=== PATIENT | female | born 1990 | race Caucasian/White ===

== ENCOUNTER 2020-03-06 16:20 | Observation (INO) ==
--- NOTE | 2020-03-06 17:15 | Emergency Department Note ---
History of Present Illness General Chief complaint: Facial Injury/Pain Stated complaint: FELL 2 DAYS, HEAD INJURY, JAW PAIN, POZO, 9 WKS Time Seen by Provider: 03/06/20 16:56 Source: patient History of Present Illness Provider complaint: Facial pain Onset (ago): day(s) Location: head and face Severity: moderate Pain Consistency: + constant Maximum Pain Intensity: 6 Quality: + aching and + sharp Exacerbated By: + movement (Of jaw) Associated symptoms: + headaches and + nausea/vomiting (Nausea without vomiting); no chest pain, no cough, no fever/chills and no shortness of breath This is a 29-year-old female presents with headache and facial pain after a head injury 2 days ago. The patient states that approximately 7 PM 2 days ago the patient missed a step and fell forward hitting her left face onto a wooden post. Witnesses stated that she was unconscious for a time. They took her to the hospital and she says she remembers arriving to the hospital. They did a ultrasound of the fetus and stated that she had a healthy 9-week but the patient and health care provider decided not to do any imaging of her head, face or hand at the time. The patient is having persistent pain to her face and head and so comes here for evaluation. She states she cannot open her jaw and has not been able to since the injury. She has been drinking liquids but not eating any solid foods. She denies any bleeding from her gums. She has sharp pain shooting into her pentecostalism. She does have some nausea but no vomiting. She is 9 weeks so she is not sure if the nausea is due to that. She denies any abdominal pain, uterine cramping or vaginal bleeding. She has had no fever, chest pain, shortness of breath, cough or cold symptoms or known exposure to COVID-19. She denies any diarrhea or urinary symptoms. She also complains of pain to the right fifth digit. She is not sure how she injured it during the fall. 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 Surgical History History of D&C D&E x2 Family History Father Prostate cancer Denies family history of No family history of adverse response to anesthesia Social History Smoking Status: Never smoker Second Hand Exposure: No; Hx Alcohol Use: Yes Alcohol type: beer, wine and hard liquor Hx Substance Use: No Preferred Language: Japanese Communication Ability: Effective Layer Out Required: No Beliefs That Will Affect Care: None marital status: marital status details: Juan Pablo (40) [phone] Current Living Situation: Family Current Living Situation Comment: brother and father current occupational status: employed current occupation: [employer]. Feels Safe at Home: Yes Review of Systems See HPI for pertinent positives & negatives. and A total of 10 systems reviewed and were otherwise negative Physical Exam Vital Signs Vital Signs - 24 hr 03/06/20 16:36 03/06/20 18:48 03/06/20 19:27 Temperature 36.8 C Temperature Source Oral Pulse Rate 89 Pulse Rate [Right Finger] 61 71 Respiratory Rate 19 17 20 Blood Pressure 128/84 Blood Pressure [Right Arm] 130/81 135/87 Blood Pressure Mean 98 Blood Pressure Mean [Right Arm] 97 103 Pulse Oximetry 99 100 99 Oxygen Delivery Method Room Air Sepsis Recent Fever Within 48 Hours No Sepsis New/Unexplained Change in Mental Status N/A Sepsis Action Taken by Nursing No Action Required 03/06/20 21:08 Temperature Temperature Source Pulse Rate Pulse Rate [Right Finger] 74 Respiratory Rate 20 Blood Pressure Blood Pressure [Right Arm] 140/102 H Blood Pressure Mean Blood Pressure Mean [Right Arm] 114 Pulse Oximetry 98 Oxygen Delivery Method Sepsis Recent Fever Within 48 Hours Sepsis New/Unexplained Change in Mental Status Sepsis Action Taken by Nursing Constitutional: Vital signs reviewed. Eyes: Pupils are equal round reactive to light. Conjunctiva are noninjected. Ecchymosis under the left eye. No EOM entrapment. ENT: Diffuse tenderness along the TMJ and temporal. No roberson sign. No hemotympanum. Patient is not able to open her jaw. Neck supple without meningeal signs. No midline tenderness to the cervical spine. Respiratory: Clear to auscultation bilaterally. Breath sounds are equal bilaterally. Cardiovascular: Regular rate and rhythm. No rubs or gallops. GI: Soft, nondistended and nontender. Bowel sounds are present. Musculoskeletal: Tenderness and bruising throughout the right fifth digit without deformity. No tenderness proximally. Integumentary: No cyanosis. or jaundice. Neurologic: The patient is awake and alert. Cranial nerves are grossly intact. The patient is unable to open her jaw. Motor is 5 out of 5 all extremities. Sensation is intact to light touch all extremities. Normal speech. No pronator drift. Psychiatric: Normal affect. Not anxious appearing. Course Administered Medications Discontinued Medications Sodium Chloride (Nss 1000ml) 1,000 mls @ 999 mls/hr IV .Q1H1M ONE Stop: 03/06/20 20:55 Last Infusion: 03/06/20 21:09 Dose: 0 mls/hr Documented by: [id number] Admin: 03/06/20 20:13 Dose: 999 mls/hr Documented by: [id number] Medical Decision Making Differential Diagnosis ICH, concussion, contusion, mandibular fracture, finger fracture Medical Records Attestation: I reviewed the patient's medical records. I did perform a limited focused review of portions of the patient's old chart on the electronic medical record. The patient has had no recent pertinent visits to this hospital. Home Medications Current Medication List: was personally reviewed by me Laboratory Data Result diagrams: 03/06/20 20:03 03/06/20 20:03 Lab Results 03/06/20 03/06/20 03/06/20 Range/Units 20:03 20:03 20:03 WBC 5.35 (4.8-10.8) K/uL RBC 4.18 L (4.2-5.4) M/uL Hgb 14.1 (12.0-16.0) g/dL Hct 40.0 (37-47) % MCV 95.7 (80-100) fL MCH 33.7 (25-34) pg MCHC 35.3 (32-36) g/dL RDW Std Deviation 42.6 (36.4-46.3) fL RDW Coeff of Kiki 12.2 (11.5-14.5) % Plt Count 236 (130-400) K/uL MPV 9.9 (7.4-10.4) fL Immature Gran % (Auto) 0.2 % Neut % (Auto) 67.7 % Lymph % (Auto) 20.7 % Dickson % (Auto) 10.3 % Eos % (Auto) 0.7 % Baso % (Auto) 0.4 % Neut # (Auto) 3.62 (1.4-6.5) K/uL Lymph # (Auto) 1.11 L (1.2-3.4) K/uL Dickson # (Auto) 0.55 (0.11-0.59) K/uL Eos # (Auto) 0.04 (0-0.5) K/uL Baso # (Auto) 0.02 (0-0.2) K/uL Immature Gran # (Auto) 0.01 (0.00-0.02) K/uL PT 10.9 (9.0-12.0) Seconds INR 1.0 (0.9-1.1) APTT 25.9 (21.0-31.0) Seconds PTT Ratio 0.9 Sodium 136 (136-145) mmol/L Potassium 3.3 L (3.5-5.1) mmol/L Chloride 102 (98-107) mmol/L Carbon Dioxide 24 (21-32) mmol/L Anion Gap 10.0 (3-11) BUN 8 (7-18) mg/dl Creatinine 0.72 (0.6-1.2) mg/dl Est Cr Clr Drug Dosing 107.0 ml/min Est GFR ( Amer) 130.2 Est GFR (Non-Af Amer) 112.4 BUN/Creatinine Ratio 10.7 (10-20) Glucose 92 (70-99) mg/dl Calcium 9.7 (8.5-10.1) mg/dl Total Bilirubin 0.7 (0.2-1) mg/dl AST 36 (15-37) U/L ALT 93 H (12-78) U/L Alkaline Phosphatase 58 (45-117) U/L Total Protein 8.1 (6.4-8.2) gm/dl Albumin 4.5 (3.4-5.0) gm/dl Globulin 3.6 (2.5-4.0) gm/dl Albumin/Globulin Ratio 1.3 (0.9-2) Imaging Data Radiologist's Impression: XR finger(s) RT min 2V HISTORY: 29 years-old Female 5th digit trauma eval for fracture() acute right fifth finger pain status post trauma COMPARISON: None TECHNIQUE: 3 views of the right fifth finger FINDINGS: Mild soft tissue swelling. There is an acute nondisplaced volar plate avulsion fracture involving the base of the fifth middle phalanx. No dislocation. No significant osteoarthritis. IMPRESSION: Acute nondisplaced volar plate avulsion fracture involves the base of the fifth middle phalanx. ACT 112: Negative or not required by law. The above report was generated using voice recognition software. It may contain grammatical, syntax or spelling errors. Electronically signed by: Luis William M.D. 03/06/2020 5:43 PM Dictated: 03/06/201741 Transcribed: 03/06/201741 CT head/brain wo con CLINICAL HISTORY: 29 years-old Female with trauma eval for bleed (). Acute post traumatic head and neck injury TECHNIQUE: Multiple axial CT images of the head were obtained without contrast. A dose lowering technique was utilized adhering to the principles of ALARA. COMPARISON: CT maxillofacial same day. FINDINGS: No acute intracranial hemorrhage, midline shift, intracranial mass, hydrocep halus, territorial ischemia or abnormal extra-axial collection. No acute calvarial fracture. Acute fractures of the left-sided grammatical arch are partially imaged. Mastoid air cells and paranasal sinuses are generally clear. Mild subcutaneous edema of the lateral left cheek. IMPRESSION: 1. No acute intracranial abnormality or calvarial fracture. 2. Please refer to CT maxillofacial study of same day for discussion of the acute facial bone fractures. ACT 112: Negative or not required by law. The above report was generated using voice recognition software. It may contain grammatical, syntax or spelling errors. Electronically signed by: Luis William M.D. 03/06/2020 6:[address] facial bones wo con CLINICAL HISTORY: 29 years-old Female presenting with trauma eval for fracture(). Acute facial trauma COMPARISON STUDY: Head CT of same day TECHNIQUE: High-resolution CT scan of the facial bones is performed. Images are reviewed in the axial, sagittal, and coronal planes. IV contrast was not administered for this examination. A dose lowering technique was utilized a dhering to the principles of ALARA. CT DOSE: 736.23 mGy.cm FINDINGS: Mild to moderate subjacent of the lateral left cheek superficial to an acute fracture of the left-sided zygomatic arch which demonstrates apex medial angulation of approximately 44 degrees. The arch is fractured in 3 places. Mas toid air cells and middle ear cavities are clear. Minimal mucosal thickening of the ethmoid air cells and left maxillary sinus. Mild upper bowing and spurring of the nasal septum. Maxillary garay, as a grammatical arches, nasal bone, right zygomatic arch, mandible and orbital garay appear intact. IMPRESSION: Acute comminuted and angulated fracture of the left zygomatic arch with mild to moderate soft tissue swelling. ACT 112: Negative or not required by law. The above report was generated using voice recognition software. It may contain grammatical, syntax or spelling errors. Electronically signed by: Luis William M.D. 03/06/2020 7:08 PM Dictated: 03/06/201904 Transcribed: 03/06/201904 Blood Pressure Blood Pressure Findings: Elevated blood pressure Blood Pressure Disposition: Referred to patients primary care provider Head Trauma GCS Score: 15 MDM Narrative I did evaluate the patient as noted above. She is presenting 2 days after a head injury. She is unable to open her jaw. She has significant headache and facial pain. After discussion of risks and benefits of CT scanning and x-rays she was agreeable to obtaining imaging. I did order and personally reviewed the images of the patient's right fifth digit x-rays as described above. She was placed in a bare metal splint. I did order a CT of the head and facial bones. I did review the images myself as well as the radiology report as described above. She has significant fractures to her face as noted above. I did discuss the case with Dr. Ramirez of oral surgery. He recommended patient be admitted to the hospital and he will perform surgery tomorrow. He did request the patient have clearance from [employer]. I did speak to Dr. Almanzar of [employer] who stated there was no contraindication to her having surgery. I did talk to the patient. I did discuss the test results and recommended hospitalization. She was agreeable with the plan. IV access was established. I did treat her with a liter of normal saline. I did order and review the patient's blood work as noted in the electronic medical record. Her labs are unremarkable other than a mild hypokalemia. I did discuss case with the hospitalist and keycase assembler. Impression & Plan Fracture, facial bones, Fall, Head injury, closed, with LOC of unknown duration, First trimester Discharge Plan Visit Data Chief Complaint: Facial Injury/Pain Stated Complaint: FELL 2 DAYS, HEAD INJURY, JAW PAIN, POZO, 9 WKS ED Provider: Roney Garcia Discharge Problem: Fracture, facial bones, Fall, Head injury, closed, with LOC of unknown duration, First trimester Patient Disposition: Being Evaluated by Hospitalist Forms Stand Alone Forms: [facility] 360pi Prescriptions Prescriptions: No Action prenat.vits,wyatt,kmg-mfev-rahxr Tablet 1 tab PO DAILY RF: 0 Referrals Referrals: PCP,NO [Primary Care Provider] -
--- NOTE | 2020-03-06 17:44 | XRay Report ---
XR finger(s) RT min 2V HISTORY: 29 years-old Female 5th digit trauma eval for fracture() acute right fifth finger p ain status post trauma COMPARISON: None TECHNIQUE: 3 views of the right fifth finger FINDINGS: Mild soft tissue swelling. There is an acute nondisplaced volar plate avulsion fracture involving the base of the fifth middle phalanx. No dislocation. No significant osteoarthritis. IMPRESSION: Acute nondisplaced volar plate avulsion fracture involves the base of the fifth middle ph alanx. ACT 112: Negative or not required by law. The above report was generated using voice recognition software. It may contain grammatical, syntax o r spelling errors. Electronically signed by: Luis William M.D. 03/06/2020 5:43 PM
--- NOTE | 2020-03-06 18:50 | CT Scan Report ---
CT head/brain wo con CLINICAL HISTORY: 29 years-old Female with trauma eval for bleed (). Acute post traumatic he ad and neck injury TECHNIQUE: Multiple axial CT images of the head were obtained without contrast. A dose lowering tech nique was utilized adhering to the principles of ALARA. COMPARISON: CT maxillofacial same day. FINDINGS: No acute intracranial hemorrhage, midline shift, intracranial mass, hydrocephalus, territorial ischem ia or abnormal extra-axial collection. No acute calvarial fracture. Acute fractures of the left-sided grammatical arch are partially imaged. Mastoid air cells and paranasal sinuses are generally clear. Mild subcutaneous edema of the lateral left cheek. IMPRESSION: 1. No acute intracranial abnormality or calvarial fracture. 2. Please refer to CT maxillofacial study of same day for discussion of the acute facial bone fractur es. ACT 112: Negative or not required by law. The above report was generated using voice recognition software. It may contain grammatical, syntax o r spelling errors. Electronically signed by: Luis William M.D. 03/06/2020 6:49 PM
--- NOTE | 2020-03-06 19:10 | CT Scan Report ---
CT facial bones wo con CLINICAL HISTORY: 29 years-old Female presenting with trauma eval for fracture(). Acute facia l trauma COMPARISON STUDY: Head CT of same day TECHNIQUE: High-resolution CT scan of the facial bones is performed. Images are reviewed in the axia l, sagittal, and coronal planes. IV contrast was not administered for this examination. A dose lower ing technique was utilized adhering to the principles of ALARA. CT DOSE: 736.23 mGy.cm FINDINGS: Mild to moderate subjacent of the lateral left cheek superficial to an acute fracture of the left-tanvi ed zygomatic arch which demonstrates apex medial angulation of approximately 44 degrees. The arch is fractured in 3 places. Mastoid air cells and middle ear cavities are clear. Minimal mucosal thickenin g of the ethmoid air cells and left maxillary sinus. Mild upper bowing and spurring of the nasal sept um. Maxillary garay, as a grammatical arches, nasal bone, right zygomatic arch, mandible and orbital garay appear intact. IMPRESSION: Acute comminuted and angulated fracture of the left zygomatic arch with mild to moderate soft tissue swelling. ACT 112: Negative or not required by law. The above report was generated using voice recognition software. It may contain grammatical, syntax o r spelling errors. Electronically signed by: Luis William M.D. 03/06/2020 7:08 PM
[2020-03-06] MEDS ORDERED: SODIUM CHLORIDE 0.9% 1000ML 1,000 ML IV ONE (19:55)
[2020-03-06 20:15] LABS: Basophils # (auto) 0.02 K/uL (0-0.2); Basophils % (auto) 0.4 %; Eosinophils # (auto) 0.04 K/uL (0-0.5); Eosinophils % (auto) 0.7 %; Hemoglobin 14.1 g/dL (12.0-16.0); Immature Granulocytes # (auto) 0.01 K/uL (0.00-0.02); Immature Granulocytes % (auto) 0.2 %; Lymphocytes # (auto) 1.11 K/uL (1.2-3.4); Lymphocytes % (auto) 20.7 %; Mean Corpuscular Hemoglobin 33.7 pg (25-34); Mean Corpuscular Hgb Conc 35.3 g/dL (32-36); Mean Corpuscular Volume 95.7 fL (80-100); Mean Platelet Volume 9.9 fL (7.4-10.4); Monocytes # (auto) 0.55 K/uL (0.11-0.59); Monocytes % (auto) 10.3 %; Neutrophils # (auto) 3.62 K/uL (1.4-6.5); Neutrophils % (auto) 67.7 %; Platelet Count 236 K/uL (130-400); RDW Coefficient of Variation 12.2 % (11.5-14.5); RDW Standard Deviation 42.6 fL (36.4-46.3); Red Blood Count 4.18 M/uL (4.2-5.4); White Blood Count 5.35 K/uL (4.8-10.8)
[2020-03-06 20:29] LABS: Partial Thromboplastin Ratio 0.9; Partial Thromboplastin Time 25.9 Seconds (21.0-31.0); Prothrombin Time 10.9 Seconds (9.0-12.0)
[2020-03-06 20:35] LABS: Albumin Level 4.5 gm/dl (3.4-5.0); BUN Creatinine Ratio 10.7 (10-20); Calcium 9.7 mg/dl (8.5-10.1); Est GFR (African American) 130.2; Est GFR (Non-African American) 112.4; Potassium 3.3 mmol/L (3.5-5.1)
[2020-03-06 20:38] LABS: Albumin Globulin Ratio 1.3 (0.9-2); Bilirubin,Total 0.7 mg/dl (0.2-1); Globulin 3.6 gm/dl (2.5-4.0); Total Protein 8.1 gm/dl (6.4-8.2)
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
[2020-03-06] MEDS ORDERED: ACETAMINOPHEN 1000 MG/100 ML IV IV PRN (22:53)
[2020-03-06] MEDS: SODIUM CHLORIDE 0.9% 1000ML 1,000 ML IV SCH (23:16)
[2020-03-06] MEDS: MoRPHine SULFATE 2 MG/ML CARP IV PRN (23:41)
[2020-03-07] MEDS: SODIUM CHLORIDE 0.9% 1000ML 1,000 ML IV SCH (07:22)
[2020-03-07] MEDS: MoRPHine SULFATE 2 MG/ML CARP IV PRN (07:26)
[2020-03-07] MEDS: PRENATAL VITAMIN 1 TAB PO SCH (08:02)
--- NOTE | 2020-03-07 08:25 | Hospitalist Progress Note ---
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 Zygomatic arch fracture on left side -Dr. Ramirez Maxillofacial surgery Cx'd -surgery scheduled for 11:00 -Routine postop care per surgery -Patient has been n.p.o. overnight with normal saline at 125 mls/hour -She reports feeling a bit dry and not voiding, changed to LR at 175 -Tylenol for mild pain morphine for severe -Reports pain well controlled Fifth Digit Finger fracture Acute nondisplaced Fracture -Patient could not tolerate the splint recommend robyn taping 9 weeks by last menstrual period, has not had initial OB appointment. History of molar in the past, obtained obtain hCG to confirm , quantitative hCG 39,000. -Scheduled with Dr. Vinson -try to avoid unnecessary radiation F/E/N: LR at 125 Mls/hour DVT PPx: none, ambulating Dispo: NPO pending surgery tomorrow Full Code (2) Fall: (3) Head injury, closed, with LOC of unknown duration: (4) First trimester : (5) Supervision of normal intrauterine in primigravida: Admission and Anticipated Discharge Date Admission Date: March 06, 2020 Supervising Physician Co-Signing Physician Notes Patient seen and examined with resident physician, Dr. Ravi. Agree with history, exam findings, assessment and plan of care as outlined by Dr. Ravi. In brief, Zoraida is a 29 year old at 9 weeks gestation admitted following a fall a few days ago where she hit her face on a pole. She was having difficulty opening her mouth and continued to have significant pain over the left zygomatic arch with a depression and came to the ED for evaluation. She was found to have an acute, comminuted and angulated fracture of the left zygomatic arch. She continues to have pain in the area of the fracture. She also has discomfort in the right small finger. A metal splint was placed on the finger, but it was loose and kept falling off. She has not yet established care with OB, but has an appointment coming up with Dr. Vinson. Noted that she had a small amount of pink tinged vaginal discharge today. No abdominal pain or cramping. On exam today, she is well appearing. There is soft tissue edema and ecchymosis over the left zygomatic arch. Heart with regular rate and rhythm. S1/S2 without murmur, rub or gallop. Lungs are clear to auscultation throughout all lung geller. Small finger, right hand with soft tissue swelling and tenderness. Able to flex at the DIP, PIP and MCP. 1. left zygomatic arch fracture. Repair with OMFS later today. 2. right small finger fracture. Robyn tape to ring finger. Anticipate this will heal well. 3. . did place a consult to OB given her recent pink tinged vaginal discharge. Appreciate recommendations. Dispo: pending clinical improvement. Subjective Patient lying in bed with her in no acute distress. Patient briefly relate her story to me, which correlated with the events listed in her H&P. Per reports the patient had eczema heart and up to shake the entire structure. I question the patient about her loss of consciousness during the incident, she did not describe anything that would suggest a post ictal state, there are no history of seizures. She did have a confusion and difficulty remembering that correlated well with concussion symptoms. The patient stated she was voiding, using the bathroom appropriately, decreased p.o. intake due to her zygomatic fracture, and slept not well last night. Patient is scheduled for surgery at 11 AM this afternoon, all questions were answered no acute concerns. We reviewed the patient's OB history with her, she has not had her initial OB appointment yet. She reported having a history of 2 prior pregnancies as documented in her OB note. She is scheduled to have her first OB appointment with Dr. Vinson in the coming weeks. Review of Systems Review of Systems: All systems reviewed & are unremarkable except as noted in HPI & below Physical Exam Physical Exam: General: In no acute distress HEENT: Normocephalic atraumatic Neck: Trachea midline normal to visual inspection Cardiac: See attending attestation Respiratory: No respiratory distress, symmetrical chest expansion, able to talk in full sentences, see attending attestation MSK: Moves all extremities, swelling in her right fifth digit, Skin: Visible bruise under her left eye otherwise cool dry and intact Neuro: Alert and oriented x4, CN II through XII grossly intact, sensory function intact, motor function intact Psych: Calm and cooperative Results & Data Results & Data ([facility]) Vital Signs (Past 12 Hours) Vital Signs Temp Pulse Resp BP BP Pulse Ox 03/07/20 06:51 36.6 C 79 20 119/63 98 03/06/20 22:58 36.4 C L 76 16 147/91 H 100 03/06/20 22:21 71 18 118/78 98 03/06/20 21:08 74 20 140/102 H 98 Laboratory Results 03/07/20 03/07/20 03/07/20 Range/Units 10:30 10:30 00:20 WBC (4.8-10.8) K/uL RBC (4.2-5.4) M/uL Hgb (12.0-16.0) g/dL Hct (37-47) % MCV (80-100) fL MCH (25-34) pg MCHC (32-36) g/dL RDW Std Deviation (36.4-46.3) fL RDW Coeff of Kiki (11.5-14.5) % Plt Count (130-400) K/uL MPV (7.4-10.4) fL Immature Gran % (Auto) % Neut % (Auto) % Lymph % (Auto) % Barron % (Auto) % Eos % (Auto) % Baso % (Auto) % Neut # (Auto) (1.4-6.5) K/uL Lymph # (Auto) (1.2-3.4) K/uL Barron # (Auto) (0.11-0.59) K/uL Eos # (Auto) (0-0.5) K/uL Baso # (Auto) (0-0.2) K/uL Immature Gran # (Auto) (0.00-0.02) K/uL PT (9.0-12.0) Seconds INR (0.9-1.1) APTT (21.0-31.0) Seconds PTT Ratio Sodium (136-145) mmol/L Potassium (3.5-5.1) mmol/L Chloride (98-107) mmol/L Carbon Dioxide (21-32) mmol/L Anion Gap (3-11) BUN (7-18) mg/dl Creatinine (0.6-1.2) mg/dl Est Cr Clr Drug Dosing ml/min Est GFR ( Amer) Est GFR (Non-Af Amer) BUN/Creatinine Ratio (10-20) Glucose (70-99) mg/dl Calcium (8.5-10.1) mg/dl Total Bilirubin (0.2-1) mg/dl AST (15-37) U/L ALT (12-78) U/L Alkaline Phosphatase (45-117) U/L Total Protein (6.4-8.2) gm/dl Albumin (3.4-5.0) gm/dl Globulin (2.5-4.0) gm/dl Albumin/Globulin Ratio (0.9-2) HCG, Quant 69930 mIU/ml COVID-19 Eval Order Covid19 IDNow [facility] SARS-CoV-2, RNA, NAAT NEGATIVE (NEGATIVE) 03/06/20 03/06/20 03/06/20 Range/Units 20:03 20:03 20:03 WBC 5.35 (4.8-10.8) K/uL RBC 4.18 L (4.2-5.4) M/uL Hgb 14.1 (12.0-16.0) g/dL Hct 40.0 (37-47) % MCV 95.7 (80-100) fL MCH 33.7 (25-34) pg MCHC 35.3 (32-36) g/dL RDW Std Deviation 42.6 (36.4-46.3) fL RDW Coeff of Kiki 12.2 (11.5-14.5) % Plt Count 236 (130-400) K/uL MPV 9.9 (7.4-10.4) fL Immature Gran % (Auto) 0.2 % Neut % (Auto) 67.7 % Lymph % (Auto) 20.7 % Barron % (Auto) 10.3 % Eos % (Auto) 0.7 % Baso % (Auto) 0.4 % Neut # (Auto) 3.62 (1.4-6.5) K/uL Lymph # (Auto) 1.11 L (1.2-3.4) K/uL Barron # (Auto) 0.55 (0.11-0.59) K/uL Eos # (Auto) 0.04 (0-0.5) K/uL Baso # (Auto) 0.02 (0-0.2) K/uL Immature Gran # (Auto) 0.01 (0.00-0.02) K/uL PT 10.9 (9.0-12.0) Seconds INR 1.0 (0.9-1.1) APTT 25.9 (21.0-31.0) Seconds PTT Ratio 0.9 Sodium 136 (136-145) mmol/L Potassium 3.3 L (3.5-5.1) mmol/L Chloride 102 (98-107) mmol/L Carbon Dioxide 24 (21-32) mmol/L Anion Gap 10.0 (3-11) BUN 8 (7-18) mg/dl Creatinine 0.72 (0.6-1.2) mg/dl Est Cr Clr Drug Dosing 107.0 ml/min Est GFR ( Amer) 130.2 Est GFR (Non-Af Amer) 112.4 BUN/Creatinine Ratio 10.7 (10-20) Glucose 92 (70-99) mg/dl Calcium 9.7 (8.5-10.1) mg/dl Total Bilirubin 0.7 (0.2-1) mg/dl AST 36 (15-37) U/L ALT 93 H (12-78) U/L Alkaline Phosphatase 58 (45-117) U/L Total Protein 8.1 (6.4-8.2) gm/dl Albumin 4.5 (3.4-5.0) gm/dl Globulin 3.6 (2.5-4.0) gm/dl Albumin/Globulin Ratio 1.3 (0.9-2) HCG, Quant mIU/ml COVID-19 Eval Order SARS-CoV-2, RNA, NAAT (NEGATIVE) Medications Administered Current Inpatient Medications Acetaminophen (Acetaminophen 1000 Mg/100 Ml Iv) 1,000 mg IV TID PRN PRN Reason: Pain Stop: 03/09/20 22:52 Last Admin: 03/07/20 01:40 Dose: 1,000 mg Documented by: Lactated Ringer's (Lr) 1,000 mls @ 175 mls/hr IV .[id number] GAUDENCIO Stop: 04/06/20 10:29 Morphine Sulfate (Morphine Sulfate 2 Mg/Ml Carp) 1 mg IV QID PRN PRN Reason: Severe Pain Stop: 03/20/20 22:52 Last Admin: 03/07/20 07:26 Dose: 1 mg Documented by: Juanito Multivit/[place]/Iron/Folic Ac ( Vitamin 1 Tab) 1 tab PO DAILY GAUDENCIO Stop: 04/06/20 08:59 Last Admin: 03/07/20 08:02 Dose: Not Given Documented by: Resident Activity Tracking Resident Involvement: Resident Care Provided Care Provided: Adult Hospital Medicine (1) Fracture, facial bones Encounter type: initial encounter Facial bone/location: zygomatic arch Fracture type: closed Laterality: left Qualified Code(s): S02.40FA - Zygomatic fracture, left side, initial encounter for closed fracture (2) Fall Encounter type: initial encounter Qualified Code(s): W19.XXXA - Unspecified fall, initial encounter
--- NOTE | 2020-03-07 08:48 | Surgery Consultation ---
Date of Consultation March 07, 2020 Patient was referred for evaluation of left Zygomatic complex and arch fracture secondary to recent trauma. The injury happened on ---Mar 04 she tripped and hit a wooded post on the left side of her face CC-- My cheek bone is fractured, I have a depression of the left side of my face and I can not open my mouth. I am 9 weeks No swelling noted some ecchymosis left eye area, Depressed left zygomatic arch causing impingement on the mandibular coronoid process. Facial exam- Nasal septum midline, Eyes WNL PERRLA The left side of face depressed with restricted jaw movement. CT scan--after trauma ZMOC and arch bone fractures, grossly displaced Plan To OR today for open reduction of the depressed ZMOC and arch fracture Aim=to elevate the depressed ZMOC bones to return to the pre trauma position. Consent signed, risks reviewed. Given the depression and limited jaw opening reduction is medically indicated otherwise limited jaw function will be the result. 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 Surgical History History of D&C D&E x2 Family History Father Prostate cancer Denies family history of No family history of adverse response to anesthesia Social History Smoking Status: Never smoker Second Hand Exposure: No; Hx Alcohol Use: No Hx Substance Use: No Preferred Language: Tongan Communication Ability: Effective Limnologist Required: No Beliefs That Will Affect Care: None marital status: marital status details: Juan Pablo (40) [phone] Current Living Situation: Significant Other Current Living Situation Comment: brother and father current occupational status: employed current occupation: [employer]. Other Information That Helps Us Care for You: No Feels Safe at Home: Yes Safety Concerns: Feels Safe At This Time Results & Data ([facility]) Vital Signs (Past 12 Hours) Vital Signs Temp Pulse Resp BP BP Pulse Ox 03/07/20 06:51 36.6 C 79 20 119/63 98 03/06/20 22:58 36.4 C L 76 16 147/91 H 100 03/06/20 22:21 71 18 118/78 98 03/06/20 21:08 74 20 140/102 H 98 PG Care Time/CCT Total # of Minutes Spent Total Time Spent with Patient: Total time spent is greater than 50% in coordination of care (as documented) at patient's floor/unit and/or counseling patient: Coding Level of Care Code 80553 Inpt Consult Level 3
[2020-03-07] MEDS ORDERED: ONDANSETRON INJ 2 MG/ML 2 ML VIAL IV PRN (11:42)
[2020-03-07] MEDS ORDERED: ePHEDrine sulfate 50 MG/ML AMP IV PRN (11:42)
[2020-03-07] MEDS ORDERED: PHENYLEPHRINE 100MCG/ML 5ML SYR IV PRN (11:42)
[2020-03-07] MEDS ORDERED: LABETALOL HCL IV 5 MG/ML 20ML IV PRN (11:42)
[2020-03-07] MEDS ORDERED: ATROPINE SULFATE 0.1 MG/ML 10ML SYR IV PRN (11:42)
--- NOTE | 2020-03-07 12:37 | OB/GYN Consultation ---
Date of Consultation March 07, 2020 Assessment & Plan (1) First trimester : at 9 weeks by sure lmp with fall. Patient notes she does not think she had any abdominal trauma. The one episode of a very slight pink tinge d/c prior to going to the bathroom. Has been wearing a pad and has not noted any further d/c. Pad dry on exam. Pelvic exam deferred. Had us at [place] that showed a viable yesterday. Reassured patient. Since not persistent, likely not something to worry about. Spoke with anesthesia, they would like viability us prior to going to the OR, this was ordered stat as plan it to take to OR today. Will also need a blood type as none on the chart and give Rhogam if indicated. (2) Fracture, facial bones: Discussed the impact of surgery on her current . Since it is unlikely that she will be able to await to have her jaw fixed until she is in the second trimester (which is the best time to have any type of surgery in ), the benefit of the surgery for her outweighs the risks of surgery to the baby. If something happens, it will likely be an all or nothing event. Anesthesia will be aware and give her appropriate medications. We can check on the baby after surgery, but she will not require any prolonged monitoring given her very early gestational age. I will have to do that by us as the probability of hearing heart tones by doppler is essentially zero. Patient had her questions answered. History of Present Illness Reason for Consultation: 9 weeks , s/p fall, pink d/c Requesting Physician: Trav Attending Physician: Sammy Bright DO History of Present Illness Patient is a 29yowf with sure lmp of 01/03/20 making her 9 1/7 weeks. Patient underwent a fall yesterday, missing a step, hitting her face on a pole and falling to the ground. She had loc and notes she doesn't remember much. She originally presented to [facility] and had an ultrasound there showing a viable , normal fluid per her report (not available for my review). Today she is awaiting surgery for her multiple jaw fractures. She recently went to the [facility] and notes some clear/slightly blood tinged fluid prior to going to the [facility]. After going to the [facility], she put on a pad and has not noted any further d/c. She denies cramping. She is a . 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 Did follow she thinks for about 4 months. Hx of elective AB in 02/09. Patient has hx of RSO for ovarian fibroma in 08/[address] Mims. Patient has had an initial nurse evaluation for this and has a nob visit on 03/10 Patient does not know her blood type, but notes she never received any shots after her previous pregnancies. 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, treated in 2008 Surgical History History of D&C D&E x2 History of right salpingo-oophorectomy ovarian fibroma Family History Father Prostate cancer Denies family history of No family history of adverse response to anesthesia Social History Smoking Status: Never smoker Second Hand Exposure: No; Hx Alcohol Use: No Hx Substance Use: No Preferred Language: Lithuanian Communication Ability: Effective Public Health Nutritionist Required: No Beliefs That Will Affect Care: None marital status: marital status details: Juan Pablo (40) [phone] Current Living Situation: Significant Other Current Living Situation Comment: brother and father current occupational status: employed current occupation: [email or web address]. Other Information That Helps Us Care for You: No Feels Safe at Home: Yes Safety Concerns: Feels Safe At This Time Review of Systems Review of Systems: All systems reviewed & are unremarkable except as noted in HPI & below Physical Exam Constitutional: WD/WN, vitals as above Gastrointestinal (Abdomen): soft, nt, nd, no brusing or lesions noted. Skin: bruising noted under her left eye. No other significant bruising noted. Psychiatric: A+Ox3, euthymic affect Genitourinary: deferred at present Results & Data ([facility]) Vital Signs (Past 12 Hours) Vital Signs Temp Pulse Resp BP Pulse Ox 03/07/20 06:51 36.6 C 79 20 119/63 98 PG Care Time/CCT Total # of Minutes Spent Total Time Spent with Patient: Total time spent is greater than 50% in coordination of care (as documented) at patient's floor/unit and/or counseling patient: Coding Level of Care Code 04446 Inpt Consult Level 3 Diagnoses First trimester Z34.91 Fracture, facial bones S02.40FA Encounter type: initial encounter Facial bone/location: zygomatic arch Fracture type: closed Laterality: left (1) Fracture, facial bones Encounter type: initial encounter Facial bone/location: zygomatic arch Fracture type: closed Laterality: left Qualified Code(s): S02.40FA - Zygomatic fracture, left side, initial encounter for closed fracture
[2020-03-07] MEDS: LACTATED RINGER'S 1,000 ML IV SCH ×3 (13:07→22:13)
--- NOTE | 2020-03-07 13:33 | Anesthesiology Consultation ---
Date of Service March 07, 2020 Covid 19 negative today. Assessment & Plan (1) Encounter for pre-operative examination: Chart Review Chart Review: Acceptable Risk for Surgery and Patient NOT seen in Pre Admission Testing Consults Requested none History Surgery Operation Date: 03/07/20 11:00 Proposed Procedures p Open Reduction Zygoma - Alexander Ramirez, DMD Height/Weight Height: 5 ft 6 in Weight: 66.9 kg Allergies Allergy/AdvReac Type Severity Reaction Status Date / Time No Known Allergies Allergy Verified 03/06/20 17:45 Medications Home Medications Medication Instructions Recorded Confirmed Last Taken prenat.vits,wyatt,qno-zjwr-ncpkv 1 tab PO DAILY 02/26/20 03/06/20 Unknown Active Medications Generic Name Dose Route Start Last Admin Trade Name Freq PRN Reason Stop Dose Admin Acetaminophen 1,000 mg 03/06/20 22:53 03/07/20 01:40 Acetaminophen 1000 Mg/100 Ml Iv IV 03/09/20 22:52 1,000 mg TID PRN Administration Pain Lactated Ringer's 1,000 mls @ 175 mls/hr 03/07/20 10:30 03/07/20 13:07 Lr IV 04/06/20 10:29 175 mls/hr .Q5H43M GAUDENCIO Administration Morphine Sulfate 1 mg 03/06/20 22:53 03/07/20 07:26 Morphine Sulfate 2 Mg/Ml Carp IV 03/20/20 22:52 1 mg QID PRN Administration Severe Pain Prenat Multivit/[place]/Iron/Folic Ac 1 tab 03/07/20 09:00 03/07/20 08:02 Vitamin 1 Tab PO 04/06/20 08:59 Not Given DAILY GAUDENCIO NPO Date Last Intake of Fluids: 03/06/20 Time Last Intake of Fluids: 23:59 Date Last Intake of Solids: 03/06/20 Time Last Intake of Solids: 17:00 Past Medical History Medical History First trimester 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, treated in 2008 Past Family History Family History Father Prostate cancer Denies family history of No family history of adverse response to anesthesia Past Surgical History Surgical History History of D&C D&E x2 History of right salpingo-oophorectomy ovarian fibroma Social History Smoking Status: Never smoker Hx Alcohol Use: No Alcohol type: beer, wine and hard liquor alcohol intake frequency: a few times a month Hx Substance Use: No substance use type: does not use Physical Exam Vital Signs Last Vital Signs Temp 36.6 C 03/07/20 06:51 Pulse 79 03/07/20 06:51 Resp 20 03/07/20 06:51 BP 119/63 03/07/20 06:51 Pulse Ox 98 03/07/20 06:51 Testing Laboratory Results 03/06/20 20:03 03/06/20 20:03 PT 10.9 Seconds (9.0-12.0) 03/06/20 20:03 INR 1.0 (0.9-1.1) 03/06/20 20:03 APTT 25.9 Seconds (21.0-31.0) 03/06/20 20:03 HCG, Quant 63073 mIU/ml 03/07/20 00:20 Blood Type B Positive 03/07/20 12:40 03/07/20 00:20 HCG, Quant [address] head/brain wo con CLINICAL HISTORY: 29 years-old Female with trauma eval for bleed (). Acute post traumatic head and neck injury TECHNIQUE: Multiple axial CT images of the head were obtained without contrast. A dose lowering technique was utilized adhering to the principles of ALARA. COMPARISON: CT maxillofacial same day. FINDINGS: No acute intracranial hemorrhage, midline shift, intracranial mass, hydrocephalus, territorial ischemia or abnormal extra-axial collection. No acute calvarial fracture. Acute fractures of the left-sided grammatical arch are partially imaged. Mastoid air cells and paranasal sinuses are generally clear. Mild subcutaneous edema of the lateral left cheek. IMPRESSION: 1. No acute intracranial abnormality or calvarial fracture. 2. Please refer to CT maxillofacial study of same day for discussion of the acute facial bone fractures. ACT 112: Negative or not required by law. The above report was generated using voice recognition software. It may contain grammatical, syntax or spelling errors. Electronically signed by: Luis William M.D. 03/06/2020 6:49 PM Dictated: 03/06/201846 Transcribed: 03/06/201846 it Phy: Ordering Phy: Roney Garcia MD cc: ~ CT facial bones wo con CLINICAL HISTORY: 29 years-old Female presenting with trauma eval for fracture(). Acute facial trauma COMPARISON STUDY: Head CT of same day TECHNIQUE: High-resolution CT scan of the facial bones is performed. Images are reviewed in the axial, sagittal, and coronal planes. IV contrast was not administered for this examination. A dose lowering technique was utilized adhering to the principles of ALARA. CT DOSE: 736.23 mGy.cm FINDINGS: Mild to moderate subjacent of the lateral left cheek superficial to an acute fracture of the left-sided zygomatic arch which demonstrates apex medial angulation of approximately 44 degrees. The arch is fractured in 3 [address]. Mastoid air cells and middle ear cavities are clear. Minimal mucosal thickening of the ethmoid air cells and left maxillary sinus. Mild upper bowing and spurring of the nasal septum. Maxillary garay, as a grammatical arches, nasal bone, right zygomatic arch, mandible and orbital garay appear intact. IMPRESSION: Acute comminuted and angulated fracture of the left zygomatic arch with mild to moderate soft tissue swelling. ACT 112: Negative or not required by law. The above report was generated using voice recognition software. It may contain grammatical, syntax or spelling errors. Electronically signed by: Luis William M.D. 03/06/2020 7:08 PM Dictated: 03/06/201904 Transcribed: 03/06/201904
[2020-03-07] MEDS ORDERED: ROCURONIUM BROMIDE 10 MG/ML 5 ML VIAL IV ONE (13:36)
[2020-03-07] MEDS ORDERED: LIDOCAINE HCL 2% 2 ML VIAL/AMP(20MG/ML) INFIL ONE (13:36)
[2020-03-07] MEDS ORDERED: PROPOFOL IV EMULSION 10 MG/ML 20 ML VIAL IV ONE (13:36)
[2020-03-07] MEDS ORDERED: ONDANSETRON INJ 2 MG/ML 2 ML VIAL ONE ×2 (13:36→14:14)
[2020-03-07] MEDS ORDERED: fentaNYL citrate 100 MCG/2 ML VIAL ONE ×3 (13:37→15:48)
--- NOTE | 2020-03-07 13:48 | Ultrasound Report ---
ULTRASOUND OF THE GRAVID UTERUS AND PELVIS CLINICAL HISTORY: . Fall. COMPARISON STUDY: Pelvic ultrasound dated 08/17/2019. TECHNIQUE: Real-time, grayscale, and color flow sonography of the gravid uterus and pelvis is perform ed transabdominally. Images are reviewed in the transverse and longitudinal planes. FINDINGS: Uterus: The gravid uterus is heterogeneous in echotexture, measuring 10.3 cm. An intramural fibroid i s suggested posteriorly measuring 2.0 cm. Gestation: There is a single live intrauterine gestation with an estimated heart rate of 162 bpm. The crown-rump length measures 2.16 cm, corresponding to an estimated age of 8 weeks 6 days. A yolk sac is identified Ovaries: The right ovary is not identified and reported surgically absent. The left ovary is normal i n appearance, measuring 3.1 x 1.6 x 2.6 cm. Normal Doppler waveforms are shown within the left ovary. Pelvis: There is no free fluid in the cul-de-sac. No concerning adnexal lesion is seen. IMPRESSION: 1. There is a single live intrauterine gestation with an estimated age of 8 weeks 6 days by crown-rum p measurement. 2. No adnexal abnormality is identified. ACT 112: Negative or not required by law. Electronically signed by: Dennis Mcbride M.D. 03/07/2020 1:47 PM
--- NOTE | 2020-03-07 13:48 | History & Physical Bridge Note ---
Date of Service March 07, 2020 History & Physical Bridge Note I have examined the patient, reviewed the History & Physical and in the interval since the performance of the History & Physical I have noted the following changes of clinical significance: no changes noted. OK for surgery--reviewed that given the amount of depression and difficulty opening mouth that reduction of the ZMOC fx and arch is medically necessary at this time. Waiting for 6 weeks is not possible as fibrosis will make the surgery very difficult and necessitate a major opened procedure. Understanding expressed.
[2020-03-07] MEDS ORDERED: DEXAMETHASONE SOD INJ 4 MG/ML VIAL ONE (14:00)
[2020-03-07] MEDS ORDERED: GLYCOPYRROLATE 0.2 MG/ML VIAL ONE (14:17)
[2020-03-07] MEDS ORDERED: NEOSTIGMINE METHYLSULFATE 5 MG/5 ML SYR ONE (14:17)
[2020-03-07] MEDS ORDERED: TOBRAMYCIN/DEXAMETHASONE OPH OINT 3.5 GM TUBE OP ONE (14:30)
[2020-03-07] MEDS: BUPIVACAINE/EPINEPHRINE 0.5% 1:200,000 1.8 ML CARP ONE ×2 (15:07→15:20)
[2020-03-07] MEDS: ARTIFICIAL TEARS OP OINT 3.5 GM TUBE OP ONE ×2 (15:08→16:50)
[2020-03-07] MEDS ORDERED: CEFAZOLIN 1000MG 1,000 MG/7.5 ML SYR IV ONE (15:10)
--- NOTE | 2020-03-07 15:10 | Post Operative Brief Note ---
PG Immediate Post Op with CF Date of Surgery March 07, 2020 Pre & Post Diagnosis Operation Date: 03/07/20 11:00 Pre-Op Diagnosis: Left Zygomatic Fracture Post-Op Diagnosis: Left Zygomatic Fracture I identified the patient and participated in the time-out.: Yes Procedure Operation Date: 03/07/20 11:00 Actual Procedures p Open Reduction Internal Fixation Left Zygomatic Complex Fracture with Depressed Arch(Left) - Alexander Ramirez DMD Surgeon Alexander Ramirez, SURI Snowblower Mechanic none Estimated Blood Loss 2 Findings Consistent with Post-Op Diagnosis Specimens Specimen Description: none per surgeon
[2020-03-07] MEDS ORDERED: ACETAMINOPHEN 1000 MG/100 ML IV IV ONE (15:23)
[2020-03-07] MEDS ORDERED: ACETAMINOPHEN 1,000 MG/100 ML VIAL IV STA (15:25)
[2020-03-07] MEDS: fentaNYL citrate 100 MCG/2 ML VIAL IV PRN ×8 (15:26→16:05)
--- NOTE | 2020-03-07 15:41 | Anesthesiology Progress Note ---
Date of Service March 07, 2020 Anesthesia Post Procedure Vital Signs Vital Signs: Temp Pulse Pulse Resp BP BP BP 03/07/20 06:51 36.6 C 79 20 119/63 03/06/20 22:58 36.4 C L 76 16 147/91 H 03/06/20 22:21 71 18 118/78 03/06/20 21:08 74 20 140/102 H 03/06/20 19:27 71 20 135/87 03/06/20 18:48 61 17 130/81 03/06/20 16:36 36.8 C 89 19 128/84 Pulse Ox 03/07/20 06:51 98 03/06/20 22:58 100 03/06/20 22:21 98 03/06/20 21:08 98 03/06/20 19:27 99 03/06/20 18:48 100 03/06/20 16:36 99 Pain Intensity Left Face: Pain Intensity: 3 Transfer of Care Handoff Completed per policy Notes Mental Status: alert / awake / arousable Patient Amnestic to Procedure: Yes Nausea / Vomiting: adequately controlled Pain: adequately controlled and improving with treatment Airway Patency, RR, SpO2: stable & adequate BP & HR: stable & adequate Hydration State: stable & adequate Anesthetic Complications: no major complications apparent and Pt Satisfied with anesthetic care Notes: The patient is awake and stable. Her pain is being treated with fentanyl and Ofirmev. The patient will be staying the night. Dr. Mascorro may see the patient and check her heart tones tonight. If she is not checked tonight then the patient will be checked at her appointment on 03/10/20.
[2020-03-07] MEDS ORDERED: HYDROmorphone INJ 1 MG/ML SYRINGE ONE (16:10)
[2020-03-07] MEDS: HYDROmorphone INJ 1 MG/ML SYRINGE IV PRN ×2 (16:10→16:15)
[2020-03-07] MEDS ORDERED: fentaNYL citrate 100 MCG/2 ML VIAL IV PRN (16:15)
--- NOTE | 2020-03-07 19:11 | Billing Data ---
Date of Service March 07, 2020 Coding Level of Care Code 80591 Initial Inpt Care Lvl 2
--- NOTE | 2020-03-07 20:20 | Obstetrical Progress Note ---
Date of Service March 07, 2020 Assessment & Plan (1) First trimester : Admission and Anticipated Discharge Date Admission Date: March 06, 2020 Everything looking good at this point. Reassured. Viable embryo with good FHM. Ok to f/u in the office as scheduled. Blood bype B+ so does not need Rhogam. Was advised to call with any concerns and has all of our contact numbers. Thank you for this consult. We will sign off now. Call if we can be of assistance. Subjective Patient awake and alert in bed when I entered to visit. Notes feels well. Can open her mouth. Notes no cramping, bleeding or d/c. Review of Systems Review of Systems: All systems reviewed & are unremarkable except as noted in HPI & below Physical Exam Constitutional: WD/WN, vitals as above Psychiatric: A+Ox3, euthymic affect Genitourinary: brief bedside ultrasound--viable iup, +fhm looking to be in the 160s Results & Data ([facility]) Vital Signs (Past 12 Hours) Vital Signs Temp Pulse Pulse Resp BP Pulse Ox 03/07/20 19:52 94 H 18 123/75 98 03/07/20 18:56 36.6 C 71 18 117/77 99 03/07/20 17:48 36.4 C L 75 18 134/85 98 03/07/20 17:15 36.6 C 72 18 125/82 99 03/07/20 16:45 36.6 C 70 18 124/72 97 03/07/20 16:35 67 20 114/77 97 03/07/20 16:25 36.4 C L 77 19 121/82 97 03/07/20 16:15 89 20 124/85 95 03/07/20 16:05 62 13 122/87 97 03/07/20 15:55 71 21 122/85 98 03/07/20 15:45 69 15 119/84 100 03/07/20 15:35 60 15 123/91 98 03/07/20 15:25 75 13 128/85 100 03/07/20 15:17 36.0 C L 53 L 18 108/72 100 PG Care Time/CCT Total # of Minutes Spent Total Time Spent with Patient: Total time spent is greater than 50% in coordination of care (as documented) at patient's floor/unit and/or counseling patient: Coding Level of Care Code None Diagnoses First trimester Z34.91
[2020-03-07] MEDS: CEFAZOLIN 1000MG 1,000 MG/7.5 ML SYR IV SCH (22:00)
[2020-03-08] MEDS: MoRPHine SULFATE 2 MG/ML CARP IV PRN ×2 (00:31→08:29)
[2020-03-08] MEDS: LACTATED RINGER'S 1,000 ML IV SCH ×2 (03:41→08:33)
[2020-03-08] MEDS: CEFAZOLIN 1000MG 1,000 MG/7.5 ML SYR IV SCH (05:32)
[2020-03-08] MEDS: PRENATAL VITAMIN 1 TAB PO SCH (08:31)
--- NOTE | 2020-03-08 09:19 | Progress Note ---
Date of Service Doing very well this AM The surgery went very well and the Zygoma reduction looks great. Patient very pleased and is able to open her mouth much more. VS stable appreciate OB-MANAGER HRIS follow up and support. I reviewed home care and incision care. RTC Mar 18 for follow up. Reviewed that best to avoid the Vicodin and take only if Tylenol not effective. OK for D/C to day March 08, 2020 Assessment & Plan Admission and Anticipated Discharge Date Admission Date: March 06, 2020 Results & Data ([facility]) Vital Signs (Past 12 Hours) Vital Signs Temp Pulse Resp BP Pulse Ox 03/08/20 07:12 36.5 C 76 18 132/88 99 03/08/20 03:21 37.0 C 75 18 112/70 98 03/07/20 23:57 36.5 C 69 18 112/71 98 PG Care Time/CCT Total # of Minutes Spent Total Time Spent with Patient: Total time spent is greater than 50% in coordination of care (as documented) at patient's floor/unit and/or counseling patient: Coding Level of Care Code 15228 Subseq Hosp Care Lvl 2
--- NOTE | 2020-03-08 09:58 | Discharge Summary ---
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 She was at a libertarian out at a campsite on Saturday night and while sober but wearing platformed sandals she stepped off a step and fell forward into a wooden pole of a gazebo. This was witnessed by a large group of people and she does not remember any of it. From what she can gather she immediately lost consciousness and appeared to go into a fencing position on the ground with both arms immed iately extended out in front of her. She came to shortly thereafter and was immediately taken to the emergency department in [place]. They diagnosed her with a concussion and did no imaging, but she was not able to move her jaw more than a mm or so and had horrible headache and pain. She decided to come into [facility] ED and was brought in by her sister. She has not been able to eat much just some broth, chili and some mac and cheese that she swallowed whole. She reports having 8/10 pain and a horrible headache. On presentation to the ED vitals were stable labwork unremarkable CT showing Acute comminuted and angulated fracture of the left zygomatic arch no intracranial abnormalities, Also with Acute nondisplaced volar plate avulsion fracture of the fifth digit. Patient denies any vision changes, weakness, subsequent loss of consciousness, tremors, difficulty swallowing liquids. She does endorse a bad headache originating in her left hoahaoism and moving across her head. No history of previou s head injuries or concussions, denies any violence towards her. Does not use alcohol, smoke, or use any drugs. Full Code Admission Exam Per Admitting Provider Constitutional: well developed and well nourished; no acute distress and not ill appearing Eyes: PERRL, conjunctivae normal, anicteric sclerae Bruising around left eye, EOMMI bilaterally ENMT: Swelling and loss of definition of cheek on left vs right. Very tender to palpation. Neck: trachea midline, no thyromegaly Respiratory: normal respiratory effort, lungs clear to auscultation Cardiovascular: RRR, no murmur, no edema Gastrointestinal (Abdomen): normal bowel sounds, soft, nontender, no hepatosplenomegaly Neurologic: PERRL, EOMI, accommodation nl, no face palsy, no dysarthria normal touch/pain/proprioception and CN's II-XI intact bilaterally Principal Diagnosis Left zygomatic fracture and left fifth digit fracture status post fall complicated by first trimester Discharge Exam General: No acute distress HEENT: Normal cephalic atraumatic Neck: Normal to visual inspection, negative JVD, trachea midline Cardiac: Palpated pulse, normal rate, normal rhythm, rest see attending Respiratory: Symmetric chest expansion, nonlabored, I will see attending GI: Soft, nontender, nondistended MSK: Moves all extremities Skin: Cool dry and intact Neuro: Alert and oriented x4 Psych: Calm and cooperative Discharge Data Allergies Allergy/AdvReac Type Severity Reaction Status Date / Time No Known Allergies Allergy Verified 03/06/20 17:45 Consultations 03/06/20 19:59 ED Decision to Admit Stat 03/06/20 22:53 Consult Oromaxillofacial Surgery Stat 03/07/20 11:33 Consult Obstetrics Routine Procedures Performed Operation Date: 03/07/20 11:00 Actual Procedures p Open Reduction Internal Fixation Left Zygomatic Complex Fracture with Depressed Arch(Left) - Alexander Ramirez, SURI Ordered Studies 03/06/20 17:08 CT facial bones wo con Stat CT head/brain wo con Stat 03/07/20 12:26 US OB <= 14 weeks fetus Stat Hospital Course (1) Fracture, facial bones: 29-year-old female G2, P0 with a past medical history of molar , and benign ovarian tumor removed in August who is currently 9 weeks by last menstrual period presented for evaluation of a fall with loss of consciousness and inability to eat, jaw and head pain subsequently diagnosed with a zygomatic arch fracture. Zygomatic arch fracture on left side Patient was admitted to medical surgery and pain was managed, Dr. Ramirez from maxillofacial surgery was consulted and scheduled her for surgery. She tolerated the surgery well and was monitored overnight. She tolerated a diet, voided, slept well, and is passing gas on the day of discharge. Dr. Ramirez evaluated her on the morning of discharge and deemed her okay for discharge. She was discharged on 5 days of twice daily'sCephalexin, recom.mending that she use Tylenol for pain control and avoid the Vicodin however for breakthrough pain he prescribed her hydrocodone acetaminophen 5324 Fifth Digit Finger fracture Acute nondisplaced Fracture -Patient could not tolerate the splint recommend robyn taping 9 weeks by last menstrual period, has not had initial OB appointment. History of molar in the past, obtained obtain hCG to confirm , quantitative hCG 39,000. Prior to surgery had an episode of pink-tinged vaginal discharge, obstetrics was consulted. A viability scan was performed prior to surgery demonstrating a viable , a repeat viability scan was performed post surgery again demonstrating a viable . The patient will follow up with mount any ROLL ON WORKER in the office. Full Code (2) Fall: (3) Head injury, closed, with LOC of unknown duration: (4) First trimester : (5) Supervision of normal intrauterine in primigravida: Total Time Total Time Spent Total Time Spent (In Minutes): see attending attestation Discharge Plan Discharge Items Patient Disposition: Home - Self-Care Reason For Visit: FACIAL FRACTURE Discharge Diagnosis: Left cheek bone fracture Condition on Discharge: Good Activity: Resume your previous activity Activity Comment: No pressure left side of your face Lifting: Gradually increase as tolerated Bathing: No limitations Exercise/Sports: Gradually increase as tolerated Driving/Machine Use: Resume 1 day after discharge Weightbearing: Full weightbearing Non-emergency contact: Surgeon and Nutrition Teacher Call non-emergency contact if: you have any medication questions, your symptoms worsen, your temperature is above 101.5, your wound has increased redness and your wound pain has increased Follow-up/Referrals: Alexander Ramirez, SURI [Physician] - 03/18/20 9:30 am PCP,NO [Primary Care Provider] - Diet: Regular Diet Texture: Easy to Chew Addtl Attending Provider Instructions: ADDITIONAL ACTIVITY RECOMMENDATIONS: * Azalea teeth after every meal. It is very important to keep your mouth clean to prevent infection. SPECIAL CARE INSTRUCTIONS: * Keep ice on the left side of your face for the next 24 to 36 hours. This will help keep the swelling down. * After 36 hours, apply heat (hot water bottle or heating pad) for the next two days, as often as possible. * You should keep the suture line clean-use Q-Tip to wash and prevent a scab from developing. Pat it dry and apply the antibiotic ointment you can can the clear dressing as needed, after Saturday you can leave the suture line exposed but do keep it clean and antibiotic ointment * You may experience slight nausea. To prevent this, never take your medication on an empty stomach. If nauseated, take small sips of macario eddie until you feel better; then you may start on applesauce and toast. * Some swelling and black and blue is common. It should gradually decrease within 4-5 days. * A certain amount of bleeding/swelling is to be expected. It is often possible to control mild oozing by placing folded gauze over the area and holding it over the suture line for 30 minutes. If you are unable to control excessive bleeding, call Dr Ramirez at [phone] * You may experience some discomfort for a few days. If pain or swelling increases, Call Dr Ramirez * Post op visit will be with Dr Ramirez on SaturdayMar 18 at 9:30 Office [address] [facility] office # [phone] Pending Studies at Discharge: No Stand-Alone Forms: [facility] [employer], Opioid Pain Management, Smoking Cessation Medications and DC Order Prescriptions: Continued cephalexin [Keflex] 500 mg capsule 500 mg PO BID Qty: 10 RF: 0 hydrocodone-acetaminophen 5-325 mg tablet 1 tab PO Q4H PRN (Reason: pain) Qty: 10 RF: 0 prenat.vits,wyatt,[id number] Tablet 1 tab PO DAILY RF: 0 Discharge Orders: Discharge Order (Routine); Ordered 03/08/20 Ordered By: Alexander Banegas/Other Patient Handouts: DVT Post Op Prevention, Facial Fracture Admission Data Admit Date/Time: 03/06/20 21:58 Attending Provider: Sammy Bright Admit Provider: Jonathon Tolentino Primary Care Provider: PCP,NO Other Providers: Everton Regan ; Alexander Ramirez ; Stephanie Maldonado ; Nas Meng ; Danna Mascorro ; Qamar Almanzar Jr ; Shalini Marley ; Lily Vinson ; Sarah Peralta ; Haven Courtney ; Bozena Palacios ; Bozena Alas ; Tisha Hernandez ; Alejandro Parikh Other Interventions: Discharge Summary Assessment (RN) Last Done: 03/08/20 10:58 Supervising Physician Co-Signing Physician Notes Patient seen and examined independently of resident physician, Dr. Ravi. Agree with history, exam findings, assessment and plan of care as outlined by Dr. Ravi. In brief, Zoraida is a 29 year old at 9 weeks gestation admitted following a fall a few days ago where she hit her face on a pole. She was having difficulty opening her mouth and continued to have significant pain over the left zygomatic arch with a depression and came to the ED for evaluation. She was found to have an acute, comminuted and angulated fracture of the left zygomatic arch. She continues to have pain in the area of the fracture. She also has discomfort in the right small finger. A metal splint was placed on the finger, but it was loose and kept falling off. She has not yet established care with OB, but has an appointment coming up with Dr. Vinson. Noted that she had a small amount of pink tinged vaginal discharge today. No abdominal pain or cramping. On exam today, she is well appearing. There is soft tissue edema and ecchymosis over the left zygomatic arch. Heart with regular rate and rhythm. S1/S2 without murmur, rub or gallop. Lungs are clear to auscultation throughout all lung geller. 1. left zygomatic arch fracture. s/p repair with OMFS today. 2. right small finger fracture. Robyn tape to ring finger. Anticipate this will heal well. 3. . Ultrasound done pre-operatively as well as post-operatively. I personally spent 20 minutes discharge planning for this patient. Resident Activity Tracking Resident Involvement: Resident Care Provided Care Provided: Adult Hospital Medicine
--- NOTE | 2020-03-16 10:37 | Operative Report ---
Post Operative Report Pre & Post Diagnosis Operation Date: 03/07/20 11:00 Pre-Op Diagnosis: Left Zygomatic Fracture Post-Op Diagnosis: Left Zygomatic Fracture I identified the patient and participated in the time-out.: Yes Procedure Operation Date: 03/07/20 11:00 Actual Procedures p Open Reduction Internal Fixation Left Zygomatic Complex Fracture with Depressed Arch(Left) - Alexander Ramirez, DMD POSTOPERATIVE DIAGNOSES: Severe complex comminuted fracture of the left zygomaticomaxillary ocular complex. OPERATION: Open reduction to restore proper facial anatomy from a fracture of the left zygomaticomaxillary ocular and arch complex using open reduction and plate fixation. DESCRIPTION OF PROCEDURE: After this patient was cleared to undergo general anesthesia, she was brought down to the Operating Room and placed under general anesthesia via an orotracheal intubation. The tube was positioned towards the right side. At this time, prior to prepping and draping the patient, we had a timeout to ensure that antibiotics were given, the appropriate equipment was available and of course the patient was identified. After everything was checked and everyone agreed, the operation began. The facial area was prepped in the usual manner with Betadine scrub. At this time, appropriate facial dressings were used to isolate the left side of the face, the eyebrow and the nasal area. A corneal shield was placed after proper lubricating the corneal shield. The sterile corneal shield was used to protect the cornea given the fact that we are operating close to the eye. At this time, the operation began. My first local anesthesia was infiltrating into the zygomatic frontal suture line I used lidocaine with epinephrine. After adequate period of time allowed for hemostasis and local anesthetic effect, an incision approximately 1.5 cm in length was made in the lateral brow area. It was taken to the skin and to the muscular layer. Once the muscular layer was encountered, I used a small Metzenbaum scissor and freed up the tissue to allow for a tension free closure. At this time, I was looking at the muscular tissue. The electrocautery instrument was now used to incise the muscle. Once the muscle was incised, we were looking at the periosteum. Because of the displacement of the fracture, the superior frontal aspect of the bone was easily identified. I cut like down to the periosteum and reflected the periosteum to expose the bone. I then dissected a little bit more inferior and found the zygomatic aspect of the fracture. With great care, I was able to dissect onto the bone and incised the periosteum. I turned my attention to the ZF suture region. With careful dissection behind the body of the zygoma, I introduced a medium sized Kylee clamp. At this time with the use of the Kylee clamp firmly situated on the body, on the medial aspect in the body of the zygoma, I was able to apply a superior and lateral force and noted that the zygomatic complex was able to be uplifted and aligned better with the inferior rim as well as the ZF suture. I used the hemostat and went along the zygomatic arch that was significantly depressed and I heard a discernible pop as the fracture was uplifted. I had good approximation of the ZF suture region. I then took a 1.3 mm titanium plate and counted approximately 6 holes in the plate. The plate was carefully bent to allow for direct fixation of the ZF suture line. The plate was carefully fitted and now with the use of 5 mm length screws, I was able to put 2 screws in the superior aspect of the plate. Once this was done, I turned my attention back to the ZF suture line. The bone fragments in this area were perfectly aligned and I then placed 2 more screws in the inferior aspect of the zygomatic bone and secured this section. At this time, we irrigated the area with copious amounts of normal saline and began the closure. The closure was basically using a 5-0 Vicryl suture to close the periosteum and muscular tissue of the ZF suture line and then interrupted skin sutures were used with the 6-0 nylon for the skin. At this time, the operation was complete. We had good anatomical contour to the face. I now cleansed the area. We placed benzoin around the periphery of the incision and Steri-Strips were placed on the ZF suture line. The patient was allowed to recover in the usual manner. Upon full recovery, the patient was extubated. Upon extubation, the patient was then monitored and taken to the Recovery Room breathing in satisfactory condition with all vital signs stable. Estimated blood loss was minimal. I attest to the content of the Intraoperative Record and any orders documented therein. Any exceptions are noted below. Surgeon Alexander Ramirez, DMD Watershed Engineer none Estimated Blood Loss 2 Findings Consistent with Post-Op Diagnosis Specimens none Description of Procedure opened reduction left zygomatic Fracture with plate fixation I attest to the content of the Intraoperative Record and any orders documented therein. Any exceptions are noted below. Supervising Physician Co-Signing Physician Notes Patient seen and examined independently of resident physician, Dr. Ravi. Agree with history, exam findings, assessment and plan of care as outlined by Dr. Ravi. In brief, Zoraida is a 29 year old at 9 weeks gestation admitted following a fall a few days ago where she hit her face on a pole. She was having difficulty opening her mouth and continued to have significant pain over the left zygomatic arch with a depression and came to the ED for evaluation. She was found to have an acute, comminuted and angulated fracture of the left zygomatic arch. She continues to have pain in the area of the fracture. She also has discomfort in the right small finger. A metal splint was placed on the finger, but it was loose and kept falling off. She has not yet established care with OB, but has an appointment coming up with Dr. Vinson. Noted that she had a small amount of pink tinged vaginal discharge today. No abdominal pain or cramping. On exam today, she is well appearing. There is soft tissue edema and ecchymosis over the left zygomatic arch. Heart with regular rate and rhythm. S1/S2 without murmur, rub or gallop. Lungs are clear to auscultation throughout all lung geller. 1. left zygomatic arch fracture. s/p repair with OMFS today. 2. right small finger fracture. Randy tape to ring finger. Anticipate this will heal well. 3. . Ultrasound done pre-operatively as well as post-operatively. I personally spent 20 minutes discharge planning for this patient.
== END 2020-03-08 13:35 | disposition home or self-care (01) ==
LOC: ED 16:20 → 3N 21:58 → SUATTDRO 21:58 → INTOOBSV 21:58 → 3N 22:22

== ENCOUNTER 2020-09-23 07:37 | Inpatient (IN) ==
[2020-09-23] MEDS ORDERED: OXYTOCIN 30 UNITS/500 ML BAG IV PRN ×2 (08:44→17:55)
--- NOTE | 2020-09-23 08:53 | History & Physical Report ---
Date of Service September 23, 2020 Assessment & Plan (1) Supervision of normal intrauterine in primigravida: (2) SROM (spontaneous rupture of membranes): admit, iv, labs. bps initially elevated. pt is painful with ctx. urine protein trace. fhts categ 1. will check cmp with routine labs. no other concerning sx. ok to ambulate if she desires. History of Present Illness Chief Complaint: srom, clear fluid and contractions Primary Care Provider: NO PCP 30yo at 38+wks egroberto presents to L&D with above cc. Contractions closer and stronger. Gross SROM. [place] tinged fluid. +FM. She is anxious about this process. She denies morris or visual change. No ruq pain. PNC c/b 1. short cx, used vaginal P4 , betamethasone given 06/14-06/15 2. RSO, fibroma, [employer] ONC 3. h/o molar preg in 2008 4. facial fracture in first trimester PNL rh pos, ri, gbs neg OBH: sab x 1, molar x 1 GYNH: nl paps no stds All Active Problems (Updated 09/23/20 @ 08:50 by Shalini Marley MD, FACOG) SROM (spontaneous rupture of membranes) Short cervix affecting Fracture, facial bones (Acute) Fall (Acute) Head injury, closed, with LOC of unknown duration (Acute) Supervision of normal intrauterine in primigravida Anemia Allergies Allergy/AdvReac Type Severity Reaction Status Date / Time No Known Allergies Allergy Verified 09/23/20 08:29 Home Medications Medication Instructions Recorded Confirmed Type prenat.vits,wyatt,[id number]-cqznc 1 tab PO DAILY 09/23/20 09/23/20 History [ Vitamin] Patient History Medical History (Updated 09/23/20 @ 08:50 by Shalini Marley MD, FACOG) 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, treated in 2008 Surgical History (Updated 09/23/20 @ 08:50 by Shalini Marley MD, FACOG) H/O wisdom tooth extraction History of D&C D&E x2 History of right salpingo-oophorectomy ovarian fibroma Family History Father Prostate cancer Denies family history of No family history of adverse response to anesthesia Social History Smoking Status: Never smoker Second Hand Exposure: No; Hx Alcohol Use: No Hx Substance Use: No Preferred Language: [place] Konger Communication Ability: Effective Manager Respiratory Required: No Beliefs That Will Affect Care: None marital status: Single marital status details: Juan Pablo (40) [phone] Current Living Situation: Significant Other Current Living Situation Comment: brother and father current occupational status: employed current occupation: [employer]. Feels Safe at Home: Yes Safety Concerns: Feels Safe At This Time Assistive Devices: None Review of Systems no fever Physical Exam Constitutional: WD/WN, vitals as above Respiratory: normal respiratory effort, lungs clear to auscultation Cardiovascular: Rate/Rhythm: regular rate and regular rhythm Gastrointestinal (Abdomen): soft gravid nt, efw 6-7# Musculoskeletal: no edema nontender calves Neurologic: grossly normal, dtrs +1 and no clonus Psychiatric: A+Ox3, euthymic affect Genitourinary: Manual OB Exam: + cervical dilation (3), + cervical effacement 100%, + station -1 and + amniotic fluid (gross srom) clear OB Exam Monitor Tracing: + external FHT monitor used (120 mod variability), + external uterine monitor used (q4), + category I and + normal FHT variability Results & Data ([facility]) Vital Signs (Past 12 Hours) Vital Signs Temp Pulse Resp BP 09/23/20 08:30 87 150/91 H 09/23/20 07:53 98.2 F 20 09/23/20 07:50 93 H 143/94 H Coding Level of Care Code None Diagnoses Supervision of normal intrauterine in primigravida Z34.00 SROM (spontaneous rupture of membranes)
[2020-09-23 09:05] LABS: Hematocrit (blood only) 30.7 % (37-47); Hemoglobin 10.8 g/dL (12.0-16.0); Mean Corpuscular Hemoglobin 32.9 pg (25-34); Mean Corpuscular Hgb Conc 35.2 g/dL (32-36); Mean Corpuscular Volume 93.6 fL (80-100); Mean Platelet Volume 9.1 fL (7.4-10.4); Platelet Count 160 K/uL (130-400); RDW Coefficient of Variation 12.3 % (11.5-14.5); Red Blood Count 3.28 M/uL (4.2-5.4); White Blood Count 4.64 K/uL (4.8-10.8)
[2020-09-23 09:38] LABS: BUN Creatinine Ratio 13.5 (10-20); Blood Urea Nitrogen 6 mg/dl (7-18); Calcium 8.8 mg/dl (8.5-10.1); Carbon Dioxide 20 mmol/L (21-32); Chloride 108 mmol/L (98-107); Creatinine Clr Calc Pharmacy 198.8 ml/min; Est GFR (African American) > 150.0; Est GFR (Non-African American) 135.5; Glucose 82 mg/dl (70-99); Potassium 3.3 mmol/L (3.5-5.1); Sodium 136 mmol/L (136-145)
[2020-09-23 09:41] LABS: Alanine Aminotransferase 35 U/L (12-78); Albumin Globulin Ratio 0.9 (0.9-2); Alkaline Phosphatase 116 U/L (45-117); Aspartate Aminotransferase 53 U/L (15-37); Bilirubin,Total 0.7 mg/dl (0.2-1); Globulin 3.3 gm/dl (2.5-4.0); Total Protein 6.3 gm/dl (6.4-8.2)
[2020-09-23] MEDS: LACTATED RINGER'S 1,000 ML IV PRN ×3 (10:38→17:58)
[2020-09-23] MEDS ORDERED: ePHEDrine sulfate 50 MG/ML AMP ONE (10:49)
[2020-09-23] MEDS ORDERED: SODIUM CHLORIDE 0.9% INJ 10 ML VIAL ONE (10:49)
[2020-09-23] MEDS ORDERED: BUPIVACAINE 0.25% 30 ML VIAL ONE (10:50)
[2020-09-23] MEDS ORDERED: fentaNYL citrate 100 MCG/2 ML VIAL ONE (10:50)
[2020-09-23] MEDS ORDERED: fentaNYL 2MCG/ML ROPIVACAINE 1.25MG/ML 100 ML BAG EPI ONE (10:50)
--- NOTE | 2020-09-23 11:25 | Anesthesiology Consultation ---
Date of Service September 23, 2020 covid positive Assessment & Plan (1) Encounter for pre-operative examination: History Height/Weight Height: 5 ft 6 in Weight: 77.111 kg Allergies Allergy/AdvReac Type Severity Reaction Status Date / Time No Known Allergies Allergy Verified 09/23/20 08:29 Medications Home Medications Medication Instructions Recorded Confirmed Last Taken prenat.vits,wyatt,ajy-wngm-zvrht 1 tab PO DAILY 09/23/20 09/23/20 09/22/20 08:00 [ Vitamin] Active Medications Generic Name Dose Route Start Last Admin Trade Name Freq PRN Reason Stop Dose Admin Lactated Ringer's 1,000 mls @ 125 mls/hr 09/23/20 08:44 09/23/20 11:59 Lr IV 09/25/20 08:43 125 mls/hr .Q8H PRN Administration L&D Protocol Protocol Past Medical History Medical History (Updated 09/23/20 @ 12:08 by Seble Parker MD) 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, treated in 2008 Past Family History Family History Father Prostate cancer Denies family history of No family history of adverse response to anesthesia Past Surgical History Surgical History (Updated 09/23/20 @ 08:50 by Shalini Marley MD, FACOG) H/O wisdom tooth extraction History of D&C D&E x2 History of right salpingo-oophorectomy ovarian fibroma Social History Smoking Status: Never smoker Hx Alcohol Use: No Alcohol type: beer, wine and hard liquor alcohol intake frequency: a few times a month Hx Substance Use: No substance use type: does not use Physical Exam Vital Signs Last Vital Signs Temp 36.8 C 09/23/20 07:53 Pulse 75 09/23/20 12:05 Resp 20 09/23/20 07:53 BP 137/81 09/23/20 12:05 Pulse Ox 99 09/23/20 12:02 Testing Laboratory Results 09/23/20 08:52 09/23/20 08:52
[2020-09-23] MEDS ORDERED: NALOXONE HCL 1 MG in SODIUM CHLORIDE 0.9% 1000ML 1,000 ML IV PRN (12:13)
[2020-09-23] MEDS ORDERED: ePHEDrine sulfate 50 MG/ML AMP IV PRN (12:13)
[2020-09-23] MEDS ORDERED: fentaNYL 2MCG/ML ROPIVACAINE 1.25MG/ML 100 ML BAG EPI PRN (12:13)
[2020-09-23] MEDS ORDERED: NALOXONE HCL 0.4 MG/1 ML VIAL/CARP IV PRN (12:13)
[2020-09-23] MEDS ORDERED: diphenhydrAMINE 50 MG/ML VIAL IV PRN (12:13)
[2020-09-23] MEDS ORDERED: ONDANSETRON INJ 2 MG/ML 2 ML VIAL IV PRN (12:13)
[2020-09-23] MEDS ORDERED: TERBUTALINE SULFATE 1 MG/ML VIAL ONE (12:31)
--- NOTE | 2020-09-23 15:28 | Labor Progress Brief Note ---
Date of Service September 23, 2020 Subjective Delayed entry due to busy L&D unit with care of many patients. Patient seen around noon today for prolonged deceleration, occurring approx 30 min after combo epidural placement, which ultimately resolved with repositioning and terbutaline. Cvx 6cm/100/-1. Given concerns raised during this visit, by the prolonged decel, OR was notified of the distress episode and a plan was put in place to have OR3 ready and waiting for use in the event of a STAT section until this baby is delivered safely. Patient seen again around 3pm today for recheck of cervix. FHT Cat 1, [place] Q2- 3, clear fluid leakage and bloody show, 8/100/0 to +1 with molding noted, and patient desires continuation of expectant management. Patient is resting comfortably. Assessment & Plan Admission and Anticipated Discharge Date Admission Date: September 23, 2020 Results & Data ([facility]) Vital Signs (Past 12 Hours) Vital Signs Temp Pulse Resp BP Pulse Ox 09/23/20 15:22 96 H 96 09/23/20 15:17 98 H 96 09/23/20 15:12 102 H 96 09/23/20 15:11 96 H 145/84 H 09/23/20 15:07 99 H 96 09/23/20 15:02 100 H 97 09/23/20 14:57 93 H 143/90 H 96 09/23/20 14:52 110 H 96 09/23/20 14:47 108 H 98 09/23/20 14:42 103 H 97 09/23/20 14:41 90 123/66 09/23/20 14:37 100 H 97 09/23/20 14:32 89 96 09/23/20 14:27 98 H 97 09/23/20 14:26 88 119/63 09/23/20 14:22 100 H 98 09/23/20 14:17 90 96 09/23/20 14:12 90 97 09/23/20 14:11 105 H 131/69 09/23/20 14:07 100 H 97 09/23/20 14:06 95 H 94 09/23/20 14:02 97 H 96 09/23/20 13:57 103 H 97 09/23/20 13:56 99 H 132/69 09/23/20 13:52 98 H 98 09/23/20 13:47 104 H 99 09/23/20 13:42 94 H 128/61 100 09/23/20 13:37 98 H 100 09/23/20 13:32 99 H 99 09/23/20 13:27 101 H 100 09/23/20 13:26 96 H 120/72 09/23/20 13:22 103 H 100 09/23/20 13:17 97 H 100 09/23/20 13:12 98 H 100 09/23/20 13:11 100 H 129/67 09/23/20 13:07 102 H 100 09/23/20 13:02 106 H 100 09/23/20 12:57 101 H 127/72 100 09/23/20 12:55 20 09/23/20 12:52 108 H 100 09/23/20 12:47 93 H 100 09/23/20 12:42 101 H 100 09/23/20 12:39 97 H 139/72 09/23/20 12:38 99 H 153/82 H 09/23/20 12:37 99 H 20 100 09/23/20 12:33 97 H 148/82 H 09/23/20 12:32 102 H 100 09/23/20 12:31 103 H 147/85 H 09/23/20 12:30 114 H 134/74 09/23/20 12:29 105 H 89 L 09/23/20 12:28 93 H 139/88 09/23/20 12:27 95 H 138/88 99 09/23/20 12:25 92 H 145/87 H 09/23/20 12:23 86 137/92 09/23/20 12:22 80 99 09/23/20 12:21 83 136/90 09/23/20 12:19 80 140/90 09/23/20 12:17 86 134/95 99 09/23/20 12:16 20 09/23/20 12:15 83 136/87 09/23/20 12:13 82 141/81 H 09/23/20 12:12 81 98 09/23/20 12:11 82 145/88 H 09/23/20 12:09 77 140/84 09/23/20 12:07 76 141/83 H 98 09/23/20 12:05 75 137/81 09/23/20 12:03 78 154/81 H 09/23/20 12:02 79 99 09/23/20 12:01 86 127/81 09/23/20 12:00 98.2 F 09/23/20 11:59 77 134/84 09/23/20 11:57 88 139/86 99 09/23/20 11:55 82 133/81 09/23/20 11:52 102 H 94 09/23/20 11:47 95 H 143/98 H 98 09/23/20 11:42 96 H 98 09/23/20 11:37 96 H 98 09/23/20 11:32 96 H 99 09/23/20 11:27 100 H 98 09/23/20 11:22 99 H 98 09/23/20 11:21 80 144/90 H 09/23/20 10:41 81 135/92 09/23/20 08:30 87 150/91 H 09/23/20 07:53 98.2 F 09/23/20 07:50 93 H 143/94 H Coding Level of Care Code None
--- NOTE | 2020-09-23 17:57 | Labor Progress Brief Note ---
Date of Service September 23, 2020 Subjective comfortable with epidural Assessment & Plan (1) SROM (spontaneous rupture of membranes): Recent progress slow; patient and FOB counseled on and agree to augmentation with pitocin. Admission and Anticipated Discharge Date Admission Date: September 23, 2020 Physical Exam Physical Exam: 8.5-9/100/+1 FHT Cat 1 [place] Q5 Results & Data ([facility]) Vital Signs (Past 12 Hours) Vital Signs Temp Pulse Resp BP Pulse Ox 09/23/20 17:52 100 H 98 09/23/20 17:47 97 H 95 09/23/20 17:42 92 H 131/63 97 09/23/20 17:37 94 H 96 09/23/20 17:32 95 H 97 09/23/20 17:30 18 09/23/20 17:27 102 H 140/81 98 09/23/20 17:22 93 H 96 09/23/20 17:17 96 H 97 09/23/20 17:13 95 H 125/71 09/23/20 17:12 98 H 96 09/23/20 17:07 98 H 97 09/23/20 17:02 96 H 97 09/23/20 17:00 18 09/23/20 16:57 91 H 131/66 97 09/23/20 16:52 95 H 97 09/23/20 16:47 103 H 98 09/23/20 16:43 98 H 138/83 09/23/20 16:42 98 H 97 09/23/20 16:37 95 H 96 09/23/20 16:32 104 H 96 09/23/20 16:30 18 09/23/20 16:27 102 H 97 09/23/20 16:26 94 H 148/86 H 09/23/20 16:22 95 H 97 09/23/20 16:17 97 H 97 09/23/20 16:12 101 H 138/79 95 09/23/20 16:07 96 H 95 09/23/20 16:02 100 H 96 09/23/20 16:00 18 09/23/20 15:58 100 H 156/87 H 09/23/20 15:57 99 H 97 09/23/20 15:52 103 H 96 09/23/20 15:47 107 H 97 09/23/20 15:42 100 H 142/88 H 96 09/23/20 15:37 94 H 97 09/23/20 15:32 101 H 95 09/23/20 15:30 18 09/23/20 15:28 98.2 F 94 H 18 137/85 09/23/20 15:27 98 H 96 09/23/20 15:22 96 H 96 09/23/20 15:17 98 H 96 09/23/20 15:12 102 H 96 09/23/20 15:11 96 H 145/84 H 09/23/20 15:07 99 H 96 09/23/20 15:02 100 H 97 09/23/20 14:57 93 H 143/90 H 96 09/23/20 14:52 110 H 96 09/23/20 14:47 108 H 98 09/23/20 14:42 103 H 97 09/23/20 14:41 90 123/66 09/23/20 14:37 100 H 97 09/23/20 14:32 89 96 09/23/20 14:27 98 H 97 09/23/20 14:26 88 119/63 09/23/20 14:22 100 H 98 09/23/20 14:17 90 96 09/23/20 14:12 90 97 09/23/20 14:11 105 H 131/69 09/23/20 14:07 100 H 97 09/23/20 14:06 95 H 94 09/23/20 14:02 97 H 96 09/23/20 14:00 98.2 F 20 09/23/20 13:57 103 H 97 09/23/20 13:56 99 H 132/69 09/23/20 13:52 98 H 98 09/23/20 13:47 104 H 99 09/23/20 13:42 94 H 128/61 100 09/23/20 13:40 20 09/23/20 13:37 98 H 100 09/23/20 13:32 99 H 99 09/23/20 13:27 101 H 100 09/23/20 13:26 96 H 120/72 09/23/20 13:25 20 09/23/20 13:22 103 H 100 09/23/20 13:17 97 H 100 09/23/20 13:12 98 H 100 09/23/20 13:11 100 H 129/67 09/23/20 13:10 20 09/23/20 13:07 102 H 100 09/23/20 13:02 106 H 100 09/23/20 12:57 101 H 127/72 100 09/23/20 12:55 20 09/23/20 12:52 108 H 100 09/23/20 12:47 93 H 100 09/23/20 12:42 101 H 100 09/23/20 12:39 97 H 139/72 09/23/20 12:38 99 H 153/82 H 09/23/20 12:37 99 H 20 100 09/23/20 12:33 97 H 148/82 H 09/23/20 12:32 102 H 100 09/23/20 12:31 103 H 147/85 H 09/23/20 12:30 114 H 134/74 09/23/20 12:29 105 H 89 L 09/23/20 12:28 93 H 139/88 09/23/20 12:27 95 H 138/88 99 09/23/20 12:25 92 H 145/87 H 09/23/20 12:23 86 137/92 09/23/20 12:22 80 99 09/23/20 12:21 83 136/90 09/23/20 12:19 80 140/90 09/23/20 12:17 86 134/95 99 09/23/20 12:16 20 09/23/20 12:15 83 136/87 09/23/20 12:13 82 141/81 H 09/23/20 12:12 81 98 09/23/20 12:11 82 145/88 H 09/23/20 12:09 77 140/84 09/23/20 12:07 76 141/83 H 98 09/23/20 12:05 75 137/81 09/23/20 12:03 78 154/81 H 09/23/20 12:02 79 99 09/23/20 12:01 86 127/81 09/23/20 12:00 98.2 F 20 09/23/20 11:59 77 134/84 09/23/20 11:57 88 139/86 99 09/23/20 11:55 82 133/81 09/23/20 11:52 102 H 94 09/23/20 11:47 95 H 143/98 H 98 09/23/20 11:42 96 H 98 09/23/20 11:37 96 H 98 09/23/20 11:32 96 H 99 09/23/20 11:27 100 H 98 09/23/20 11:22 99 H 98 09/23/20 11:21 80 144/90 H 09/23/20 10:41 81 135/92 09/23/20 10:00 98.1 F 09/23/20 08:30 87 150/91 H 09/23/20 07:53 98.2 F 09/23/20 07:50 93 H 143/94 H Coding Level of Care Code None Diagnoses SROM (spontaneous rupture of membranes)
--- NOTE | 2020-09-23 20:40 | Delivery Summary ---
Vaginal Delivery Summary Date of Service September 23, 2020 Vaginal Delivery Summary DIAGNOSES: 1. [place] intrauterine at 37w5d gestation. 2. Spontaneous onset of labor. 3. Group B Streptococcus Neg. PROCEDURE: Spontaneous vaginal delivery without laceration. SURGEON: Lily Vinson MD. EQUIPMENT STERILIZER: None. ESTIMATED BLOOD LOSS: 250 mL. COMPLICATIONS: None. PLACENTA: Spontaneous and intact with a 3-vessel cord. DISPOSITION: Stable to labor and delivery. DESCRIPTION: The patient pushed well and brought the head to +3 station in SHEEBA position. At the end of second stage, prolonged deep deceleration was noted. Preparations were made for possible operative delivery as the head was low enough for this, but delivery was not felt to be imminent. Bladder was straight-catheterized for a large unmeasured amount of yellow urine after betadine prep of the urethral area. The patient and FOB were counseled on the options of vacuum vs forceps during the cath process. The mother was given one further contraction to try to push the head out, and with a mighty effort she brought the head to in one contraction. With an additional pushing effort the head delivered along with a foot long loop of umbilical cord. The shoulders delivered easily with a maternal pushing effort. The left shoulder was anterior. The body delivered without any difficulty, and the was placed on the maternal abdomen. It was limp and not making any i mmediate respiratory effort. The cord was quickly clamped by the MD and then cut by the FOB, and the was immediately taken to the warmer where nursery staff were awaiting the infant; see their documentation for resuscitation efforts. The placenta delivered spontaneously and was noted to be intact and with a 3VC. The cervix, vagina and perineum were examined and were found to be without defect requiring repair. The fundus was firm and lochia minimal immediately after delivery. [facility] Vaginal Delivery Charge Vaginal Delivery Codes: 09064 global code for the antepartum, delivery, and post-
[2020-09-23] MEDS ORDERED: BENZOCAINE 20% AER SPR 82.5 GM CAN EXT PRN (22:13)
[2020-09-23] MEDS ORDERED: ACETAMINOPHEN 325 MG TAB PO PRN (22:13)
[2020-09-23] MEDS ORDERED: DIPHTHERIA/TETANUS/PERTUSSIS 0.5 ML SYR/VIAL IM ONE (22:13)
[2020-09-23] MEDS ORDERED: HYDROCORTISONE ACETATE 25 MG SUPP PR PRN (22:13)
[2020-09-23] MEDS ORDERED: oxyCODONE/ACETAMINOPHEN 5mg/325mg TAB PO PRN (22:13)
[2020-09-23] MEDS ORDERED: SUPERCREAM 0.870% 15 GM JAR EXT PRN (22:13)
--- NOTE | 2020-09-23 23:44 | Anesthesia Procedure Note ---
Date of Service September 23, 2020 Anesthesia Post Epidural Note Vital Signs Vital Signs: Temp Pulse Resp BP Pulse Ox 36.4 C L 116 H 18 132/77 96 09/23/20 20:42 09/23/20 23:07 09/23/20 22:11 09/23/20 22:56 09/23/20 23:07 Pain Intensity Bilateral Lower Abdomen: Pain Intensity: 4 Perineal: Pain Intensity: 0 Notes Mental Status: alert / awake / arousable and participated in evaluation Nausea / Vomiting: adequately controlled Pain: adequately controlled Airway Patency, RR, SpO2: stable & adequate BP & HR: stable & adequate Hydration State: stable & adequate Neuraxial Anesthesia: was administered and sensory block is resolving Anesthetic Complications: no major complications apparent and Pt Satisfied with anesthetic care Epidural: Removed without complications and With tip intact
[2020-09-24] MEDS: IBUPROFEN 600 MG TAB PO PRN ×4 (00:06→18:32)
[2020-09-24] MEDS: DOCUSATE SODIUM 100 MG CAP PO SCH ×3 (00:40→20:14)
--- NOTE | 2020-09-24 06:24 | Obstetrical Progress Note ---
Date of Service <Yousuf Zarate MD - Last Filed: 09/24/20 06:23> September 24, 2020 Assessment & Plan <Yousuf Zarate MD - Last Filed: 09/24/20 06:23> (1) SROM (spontaneous rupture of membranes): - PNL: Rh pos, RI, GBS neg, COVID positive - Feels well today. Eating well, voiding well, ambulating well - Pain well controlled with ibuprofen 600mg Q4H PRN - Routine care -- OOB, ambulation, diet progression as tolerated - After discharge will have 6 week follow-up with Dr. Vinson - Continue COVID isolation precautions - Asymptomatic for COVID currently Subjective <Yousuf Zarate MD - Last Filed: 09/24/20 06:23> Zoraida is a 30 y/o female who is PPD #1 following at 38 weeks. She reports feeling well overall this morning. Some abdominal cramping and 4/10 pain well managed on analgesics. Voiding well. Tolerating meals overnight without difficulty. Patient has been able to ambulate some. Is passing gas, has not yet had a bowel movement. Has persistent lochia with some improvement this morning. Currently . Review of Systems Denies fever or chills. Denies shortness of breath or cough. Denies chest pain. Denies breast pain. Denies dysuria. Denies leg pain or leg swelling. Denies headache or changes in vision. Physical Exam <Yousuf Zarate MD - Last Filed: 09/24/20 06:23> General: Alert, oriented. No acute distress. Cardiac: Regular rate and rhythm. No murmurs. Respiratory: Clear to auscultation bilaterally a/p, no wheezes/rales/rhonchi. No increased work of breathing. Symmetrical chest rise. No respiratory distress. Abdomen: Soft, nontender, nondistended. Bowel sounds present. Uterus: Uterine fundus firm, palpable ~1 cm below umbilicus. Lower Extremities: No lower extremity edema or swelling. No deep calf pain. Chary's negative bilaterally. Results & Data ([facility]) <Yousuf Zarate MD - Last Filed: 03/27/21 06:23> Vital Signs (Past 12 Hours) Vital Signs Temp Pulse Pulse Pulse Resp BP BP 09/24/20 03:30 36.6 C 83 16 09/23/20 23:30 36.5 C 81 18 123/77 09/23/20 23:07 116 H 09/23/20 23:02 117 H 09/23/20 22:57 106 H 09/23/20 22:56 103 H 132/77 09/23/20 22:52 115 H 09/23/20 22:47 113 H 09/23/20 22:42 119 H 09/23/20 22:41 113 H 18 135/78 09/23/20 22:37 128 H 09/23/20 22:32 123 H 09/23/20 22:27 117 H 09/23/20 22:26 100 H 125/67 09/23/20 22:25 123 H 135/75 09/23/20 22:22 122 H 09/23/20 22:17 121 H 09/23/20 22:12 127 H 09/23/20 22:11 18 09/23/20 22:07 95 H 09/23/20 22:02 93 H 09/23/20 21:57 96 H 09/23/20 21:56 101 H 136/78 09/23/20 21:52 95 H 09/23/20 21:47 104 H 09/23/20 21:42 97 H 09/23/20 21:41 107 H 18 139/76 09/23/20 21:37 97 H 09/23/20 21:32 102 H 09/23/20 21:29 118 H 09/23/20 21:27 110 H 09/23/20 21:26 105 H 18 125/60 09/23/20 21:22 113 H 09/23/20 21:17 101 H 09/23/20 21:12 102 H 09/23/20 21:11 107 H 18 118/58 L 09/23/20 21:09 104 H 09/23/20 21:07 109 H 09/23/20 21:02 110 H 09/23/20 20:57 97 H 09/23/20 20:56 100 H 18 116/59 L 09/23/20 20:52 95 H 09/23/20 20:47 96 H 09/23/20 20:42 36.4 C L 114 H 18 128/93 09/23/20 20:37 106 H 09/23/20 20:32 96 H 09/23/20 20:27 95 H 09/23/20 20:26 96 H 140/75 09/23/20 20:22 101 H 09/23/20 20:17 113 H 09/23/20 20:13 110 H 114/56 L 09/23/20 20:12 112 H 09/23/20 20:07 134 H 09/23/20 20:02 130 H 09/23/20 20:00 18 09/23/20 19:57 104 H 147/98 H 09/23/20 19:52 116 H 09/23/20 19:47 98 H 09/23/20 19:42 99 H 139/82 09/23/20 19:37 101 H 09/23/20 19:32 103 H 09/23/20 19:30 18 09/23/20 19:28 106 H 147/93 H 09/23/20 19:27 107 H 09/23/20 19:22 106 H 09/23/20 19:18 97 H 130/83 09/23/20 19:17 101 H 09/23/20 19:13 101 H 190/85 H 09/23/20 19:12 106 H 09/23/20 19:07 100 H 09/23/20 19:02 100 H 09/23/20 19:00 18 09/23/20 18:58 103 H 139/103 H 09/23/20 18:57 99 H 09/23/20 18:52 104 H 09/23/20 18:47 106 H 09/23/20 18:42 107 H 09/23/20 18:41 100 H 151/91 H 09/23/20 18:37 99 H 09/23/20 18:32 98 H 09/23/20 18:30 18 09/23/20 18:27 100 H 09/23/20 18:26 101 H 144/90 H 09/23/20 18:22 107 H BP Pulse Ox 09/24/20 03:30 119/75 09/23/20 23:30 09/23/20 23:07 96 09/23/20 23:02 96 09/23/20 22:57 97 09/23/20 22:56 09/23/20 22:52 96 09/23/20 22:47 97 09/23/20 22:42 98 09/23/20 22:41 09/23/20 22:37 98 09/23/20 22:32 95 09/23/20 22:27 96 09/23/20 22:26 09/23/20 22:25 09/23/20 22:22 96 09/23/20 22:17 96 09/23/20 22:12 97 09/23/20 22:11 09/23/20 22:07 96 09/23/20 22:02 95 09/23/20 21:57 96 09/23/20 21:56 09/23/20 21:52 97 09/23/20 21:47 96 09/23/20 21:42 97 09/23/20 21:41 09/23/20 21:37 96 09/23/20 21:32 96 09/23/20 21:29 94 09/23/20 21:27 98 09/23/20 21:26 09/23/20 21:22 96 09/23/20 21:17 96 09/23/20 21:12 96 09/23/20 21:11 09/23/20 21:09 94 09/23/20 21:07 96 09/23/20 21:02 97 09/23/20 20:57 97 09/23/20 20:56 94 09/23/20 20:52 96 09/23/20 20:47 96 09/23/20 20:42 96 09/23/20 20:37 98 09/23/20 20:32 95 09/23/20 20:27 97 09/23/20 20:26 09/23/20 20:22 96 09/23/20 20:17 98 09/23/20 20:13 09/23/20 20:12 98 09/23/20 20:07 99 09/23/20 20:02 98 09/23/20 20:00 09/23/20 19:57 97 09/23/20 19:52 98 09/23/20 19:47 99 09/23/20 19:42 96 09/23/20 19:37 97 09/23/20 19:32 96 09/23/20 19:30 09/23/20 19:28 09/23/20 19:27 96 09/23/20 19:22 97 09/23/20 19:18 09/23/20 19:17 96 09/23/20 19:13 09/23/20 19:12 98 09/23/20 19:07 97 09/23/20 19:02 98 09/23/20 19:00 09/23/20 18:58 09/23/20 18:57 98 09/23/20 18:52 97 09/23/20 18:47 96 09/23/20 18:42 97 09/23/20 18:41 09/23/20 18:37 97 09/23/20 18:32 96 09/23/20 18:30 09/23/20 18:27 95 09/23/20 18:26 09/23/20 18:22 96 <Lily Vinson MD - Last Filed: 09/24/20 07:59> Co-Signing Physician Notes Resident Physician Supervision Note: I interviewed and examined the patient. Discussed with Dr. Yi and agree with findings and plan as documented in the note. Any exceptions or clarifications are listed here: Patient delivered last night with a cord prolapse and terminal bradycardia. Ultimately an with rapid improvement after delivery, and no significant maternal morbidity. She is also COVID+ on admission, and has continued to be asymptomatic with that. Her labs on admit did show a mild leukopenia and transaminitis, with WBC normalizing this morning. She is hopeful for D/C this evening. Documented By: Lily Vinson MD, FACOG Resident Activity Tracking <Yousuf Zarate MD - Last Filed: 09/24/20 06:23> Resident Involvement: Resident Care Provided Care Provided: OB Delivery
[2020-09-24 07:34] LABS: Hematocrit (blood only) 24.5 % (37-47); Hemoglobin 8.6 g/dL (12.0-16.0); Mean Corpuscular Hgb Conc 35.1 g/dL (32-36); Mean Corpuscular Volume 93.9 fL (80-100); Mean Platelet Volume 9.5 fL (7.4-10.4); Platelet Count 145 K/uL (130-400); RDW Coefficient of Variation 12.4 % (11.5-14.5); RDW Standard Deviation 41.7 fL (36.4-46.3); Red Blood Count 2.61 M/uL (4.2-5.4); White Blood Count 8.59 K/uL (4.8-10.8)
[2020-09-24] MEDS ORDERED: PRENATAL VITAMIN 1 TAB PO SCH (08:00)
== END 2020-09-24 21:02 | disposition home or self-care (01) | DRG 807 ==
LOC: OPB 07:37 → 4S1 07:41 → 4W 11:03 → 3N 09-24 00:03